=== PATIENT | male | born 1940 | race Caucasian/White ===

== ENCOUNTER → 2017-12-11 | Outpatient (CLI) | payer MEDICARE, OTHER ==
[~2017-12-11] MED LIST: IOHEXOL 300 MG/ML 75 ML VIAL. IV ONE; IOHEXOL 300 MG/ML 75 ML VIAL. ONE
--- NOTE | 2017-12-11 15:06 | RAD ---
CT of the abdomen and pelvis with contrast 12/11/2017 Indication: Microhematuria Comparison study: CT scan of the abdomen and pelvis without contrast from [facility] dated January 19, 2017 Technique: Multidetector CT imaging of the abdomen and pelvis was obtained following the administration of IV contrast. Findings: The partially visualized lung bases demonstrate no acute abnormality. 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 This is stable. There is a portosystemic shunt involving the right hepatic vein and right portal vein (at the junction of segments 6/7). Early enhancement of the right hepatic vein and IVC is noted. There is a focus of adjacent enhancement also seen. Similar findings noted on prior exam. Spleen is unremarkable. Adrenal glands are unremarkable. The pancreas is within normal limits. There is a small partially exophytic cyst in the inferior pole of left kidney measuring 12 mm in diameter. There is a small hyperechoic lesion in the anterior aspect of the mid right kidney possibly represents a small hemorrhagic cyst. This measures 7 mm in diameter. Findings are unchanged from prior study. There is no evidence of bowel obstruction. No acute inflammatory changes involving the bowel are identified. Distal colonic diverticulosis is noted. No evidence of acute diverticulitis is seen. The appendix is unremarkable. Bladder is grossly unremarkable. Prostatic calcification noted. There is no free fluid or free air seen in the abdomen or pelvis. No acute osseous changes are seen. Impression: 1. No evidence of acute intra-abdominal abnormality or change from prior study 2. Portosystemic shunt involving the right right portal vein and right hepatic vein. Associated abnormal adjacent enhancement noted. Findings may be congenital. Findings could also be posttraumatic, particularly if there is a history of hepatic trauma, transjugular liver biopsy, or transjugular portal venous access procedure. Correlate with clinical findings of a intrahepatic chantel systemic symptoms such as encephalopathy. Given the adjacent abnormal enhancement, consider further evaluation with a multiphasic hepatic MRI. PQRS Compliance Statement: One or more of the following individualized dose reduction techniques were utilized for this examination: 1. Automated exposure control 2. Adjustment of the mA and/or kV according to patient size 3. Use of iterative reconstruction technique
== END | disposition home or self-care (01) ==
LOC: CT 09:14
PROVIDERS: ATTEND Family Medicine
DX: R31.21 Asymptomatic microscopic hematuria (principal)
CPT/HCPCS: 74177; Q9967